=== PATIENT | female | born 1965 | race Caucasian/White ===

== ENCOUNTER → 2024-08-17 15:19 | Outpatient (REF) | payer BC, SELFPAY | LOC: HWWDC 15:19 | PROVIDERS: ATTENDING PHYSICIAN Physician Assistant Medical | DX: Z12.31 Encounter for screening mammogram for malignant neoplasm of breast (principal) | CPT/HCPCS: 77063; 77067 ==

== ENCOUNTER → 2024-09-01 09:21 | Outpatient (REF) | payer BC, SELFPAY | LOC: WDC 09:21 | PROVIDERS: ATTENDING PHYSICIAN Physician Assistant Medical | DX: R92.8 Other abnormal and inconclusive findings on diagnostic imaging of breast (principal) | CPT/HCPCS: 76642 ==

== ENCOUNTER 2024-12-15 06:19 | Day surgery (SDC) | payer BC, SELFPAY | END 2024-12-15 14:15 | disposition home or self-care (01) | LOC: GI 06:19 | PROVIDERS: ATTENDING PHYSICIAN Internal Medicine | DX: Z12.11 Encounter for screening for malignant neoplasm of colon (principal); D12.0 Benign neoplasm of cecum; K57.30 Diverticulosis of large intestine without perforation or abscess without bleeding; Q43.8 Other specified congenital malformations of intestine; Z86.0100 Personal history of colon polyps, unspecified | CPT/HCPCS: 45380; 88305 ==